=== PATIENT | female | born 1995 | race Caucasian/White ===

== ENCOUNTER 2019-09-15 16:08 | Emergency (ER) | payer BC ==
[~2019-09-15] VITALS: Ht 157.5 cm; Wt 68.0 kg
--- NOTE | 2019-09-15 16:34 | NUR ---
PT EVALUATED BY DR BERNARD. XRAY DONE ON AFFECTED ELBOW. AWAITING RESULTS.
[2019-09-15 17:16] VITALS: BP 126/78
--- NOTE | 2019-09-15 17:16 | NUR ---
Patient discharged to home in stable condition. Written and verbal after care instructions given. Patient verbalizes understanding of instructions. Stressed follow up or return to ER for worsening s/s.
== END 2019-09-15 17:17 | disposition home or self-care (01) ==
LOC: ER 16:08
DX: S42.462A Displaced fracture of medial condyle of left humerus, initial encounter for closed fracture (principal); V03.90XA Pedestrian on foot injured in collision with car, pick-up truck or van, unspecified whether traffic or nontraffic accident, initial encounter; Y93.02 Activity, running; Y92.9 Unspecified place or not applicable
CPT/HCPCS: 73080; A4663